=== PATIENT | male | born 1950 | race Hispanic/Latino ===

== ENCOUNTER 2019-04-16 09:41 | Observation (INO) | payer MEDICARE ==
[2019-04-15 13:40] VITALS: BP 127/77
[2019-04-15 13:55] LABS: BASOPHILS % (AUTO) 0.7 % (0.0-5.0); EOSINOPHILS % (AUTO) 2.1 % (0.0-8.0); HEMATOCRIT 46.9 % (42-54); LYMPHOCYTES % (AUTO) 36.7 % (21.0-51.0); MEAN CORPUSCULAR HEMOGLOBIN 30.5 pg (27.0-33.0); MEAN CORPUSCULAR HGB CONC 33.3 g/dL (32.0-36.0); MEAN CORPUSCULAR VOLUME 91.4 fL (79-99); MONOCYTES % (AUTO) 11.7 % (3.0-13.0); NEUTROPHILS % (AUTO) 48.8 % (40.0-77.0); NUCLEATED RED BLOOD CELLS 0.1 % (0.0-0.19); PLATELET COUNT (AUTO) 171 K/uL (130-400); RED BLOOD CELL COUNT(AUTO) 5.13 MIL/uL (4.50-6.20)
[2019-04-15 14:05] LABS: CREATININE 1.7 mg/dL (0.5-1.5); POTASSIUM 4.5 mmol/L (3.5-5.1)
[2019-04-15 14:08] LABS: INR 1.11 (0.85-1.15); PARTIAL THROMBOPLASTIN TIME 30.8 SEC (26.3-35.5); PROTHROMBIN TIME 11.6 SEC (9.6-11.6)
--- NOTE | 2019-04-15 15:33 | NUR ---
reported bun 24 and dispatcher chief coal slurry of 1.7, no new orders for fluids and no new orders for repeat labs.
[~2019-04-16] VITALS: Ht 163.8 cm; Wt 70.0 kg
[2019-04-16] VITALS (11 sets, daily range): BP systolic 115–144; BP diastolic 62–84
[~2019-04-16 09:41] MED LIST: CEFAZOLIN SODIUM 1 GM VIAL IVP ONE; SODIUM CHLORIDE 0.9% 1000ML 1,000 ML IV SCH
[2019-04-16] MEDS ORDERED: LEVO150T11 PO (12:06)
[2019-04-16] MEDS ORDERED: OMEP20CA10 PO (12:06)
[2019-04-16] MEDS ORDERED: ROSU10TA27 PO (12:06)
[2019-04-16] MEDS ORDERED: METO-408 PO (12:06)
[2019-04-16] MEDS ORDERED: ASPI-555 PO (12:06)
[2019-04-16] MEDS ORDERED: LISI-613 PO (12:06)
[2019-04-16] MEDS ORDERED: CHOL200012 PO (12:06)
[2019-04-16] MEDS ORDERED: CEFAZOLIN SODIUM 1 GM VIAL ONE ×2 (13:03→13:05)
[2019-04-16] MEDS ORDERED: BUPIVACAINE/PF 0.25% 30ML VIAL IJ ONE (13:03)
[2019-04-16] MEDS ORDERED: LIDOCAINE HCL 1% MDV 50ML VIAL ONE (13:04)
[2019-04-16] MEDS ORDERED: IOHEXOL-350 50ML VIAL IV ONE (13:28)
[2019-04-16] MEDS ORDERED: MEPERIDINE-PF 25 MG/ML SYG ONE ×2 (13:38→13:56)
[2019-04-16] MEDS ORDERED: MIDAZOLAM HCL 1 MG/ML 2ML VIAL ONE ×2 (13:39→13:57)
[2019-04-16] MEDS ORDERED: ACETAMINOPHEN 325 MG TAB PO PRN ×2 (15:15→18:15)
[2019-04-16] MEDS ORDERED: ACETAMINOPHEN-CODEINE 300/30MG TAB PO PRN ×2 (15:15→18:15)
--- NOTE | 2019-04-16 15:25 | NUR ---
RECEIVED TO ROOM 232 VIA BED ACCOMPANIED BY CAPACITOR REPAIRER STAFF. AAOX3, RESP.'S EVEN AND UNLABORED. DENIES ANY C/O AT THIS TIME. LEFT UPPER CHEST WITH DRSG IN PLACE, D/I; AREA SOFT, NO ECCHYMOSIS, HEMATOMA OR CREPITUS NOTED. LEFT ARM WITH SLING IN PLACE. INSTRUCTED ON LEFT ARM RESTRICTIONS/PRECAUTIONS, VERBALIZED UNDERSTANDING. CALL LIGHT WITHIN REACH. BED LOW, SIDE RAILS UP X3.
[2019-04-16] MEDS: LISINOPRIL 20 MG TABLET PO SCH (20:55)
[2019-04-16] MEDS: ***HM***(Metoprolol Succinate 12.5 MG) PO SCH (21:00)
[2019-04-17 03:57] VITALS: BP 137/62
[2019-04-17] MEDS ORDERED: LEVOTHYROXINE 150 MCG TABLET PO SCH (06:30)
[2019-04-17] MEDS ORDERED: PANTOPRAZOLE SODIUM 40 MG TABLET.DR PO SCH (07:30)
[2019-04-17 07:52] VITALS: BP 115/87
[2019-04-17] MEDS: ***HM***(Metoprolol Succinate 12.5 MG) PO SCH (09:00)
[2019-04-17] MEDS ORDERED: CHOLECALCIFEROL 2000 UNIT PO SCH (09:00)
[2019-04-17] MEDS ORDERED: ASPIRIN 81 MG EC TAB PO SCH (09:00)
[2019-04-17] MEDS: LISINOPRIL 20 MG TABLET PO SCH (09:26)
[2019-04-17 11:58] VITALS: BP 119/68
[2019-04-18] MEDS ORDERED: LEVOTHYROXINE 150 MCG TABLET PO SCH (06:30)
== END 2019-04-17 14:10 | disposition home or self-care (01) ==
LOC: DAH 09:41 → DAHIP 09:42 → 2AH 15:29
PROVIDERS: ADMIT Internal Medicine; ATTEND Internal Medicine
DX: I49.5 Sick sinus syndrome (principal); E11.9 Type 2 diabetes mellitus without complications; I11.0 Hypertensive heart disease with heart failure; I50.22 Chronic systolic (congestive) heart failure; I97.190 Other postprocedural cardiac functional disturbances following cardiac surgery; I47.2 Ventricular tachycardia; I42.9 Cardiomyopathy, unspecified; Z82.49 Family history of ischemic heart disease and other diseases of the circulatory system; Z79.899 Other long term (current) drug therapy; Z79.01 Long term (current) use of anticoagulants
CPT/HCPCS: 33249; 36415; 71045; 80048; 82948; 85025; 85610; 85730; A4606; C1721; C1895; G0378 ×23; J0690 ×2; J2175 ×2; J2250 ×2; J3490 ×2; Q9967; 99156; 99157

== ENCOUNTER 2019-04-24 16:57 | Inpatient (IN) | payer MEDICARE ==
[~2019-04-24] VITALS: Ht 165.1 cm; Wt 66.2 kg
[~2019-04-24 16:57] MED LIST changes: +ASPI-555 PO; -CEFAZOLIN SODIUM 1 GM VIAL IVP ONE; +CHOL200012 PO; +LEVO150T11 PO; +LISI-613 PO; +METO-408 PO; +OMEP20CA10 PO; +ROSU10TA27 PO; -SODIUM CHLORIDE 0.9% 1000ML 1,000 ML IV SCH
[2019-04-24 17:25] LABS: BASOPHILS % (AUTO) 0.8 % (0.0-5.0); EOSINOPHILS % (AUTO) 2.6 % (0.0-8.0); HEMATOCRIT 49.4 % (42-54); LYMPHOCYTES % (AUTO) 38.7 % (21.0-51.0); MEAN CORPUSCULAR HEMOGLOBIN 30.3 pg (27.0-33.0); MEAN CORPUSCULAR HGB CONC 33.3 g/dL (32.0-36.0); MEAN CORPUSCULAR VOLUME 91.1 fL (79-99); MONOCYTES % (AUTO) 13.2 % (3.0-13.0); NEUTROPHILS % (AUTO) 44.7 % (40.0-77.0); NUCLEATED RED BLOOD CELLS 0.1 % (0.0-0.19); PLATELET COUNT (AUTO) 177 K/uL (130-400); RED BLOOD CELL COUNT(AUTO) 5.42 MIL/uL (4.50-6.20); WHITE BLOOD COUNT (AUTO) 6.2 K/uL (4.8-10.8)
[2019-04-24 17:34] LABS: CREATININE 1.5 mg/dL (0.5-1.5)
[2019-04-24 17:39] LABS: ALBUMIN 4.1 g/dL (3.5-5.0); BILIRUBIN,TOTAL 0.7 mg/dL (0.2-1.0); TOTAL PROTEIN, SERUM 8.4 g/dL (6.0-8.3)
[2019-04-24 17:46] LABS: B-TYPE NATRIURETIC PEPTIDE 84 pg/mL (0-100)
[2019-04-24 17:56] LABS: INR 1.02 (0.85-1.15); PARTIAL THROMBOPLASTIN TIME 28.9 SEC (26.3-35.5); PROTHROMBIN TIME 10.7 SEC (9.6-11.6)
[2019-04-24] MEDS ORDERED: NITROGLYCERIN 1GM/1 INCH PACKET TD ONE (19:17)
[2019-04-24] MEDS ORDERED: SODIUM CHLORIDE 0.9% 500ML 500 ML IV ONE (19:19)
[2019-04-24] MEDS ORDERED: IOHEXOL-350 75 ML VIAL IV ONE (19:25)
[2019-04-24] MEDS ORDERED: LACTULOSE 20 GM/30 ML UDCUP PO PRN (20:45)
[2019-04-24] MEDS ORDERED: GLUCAGON 1MG KIT 1 MG ML IM PRN (20:45)
[2019-04-24] MEDS ORDERED: ONDANSETRON HCL 4 MG/2 ML VIAL IV PRN (20:45)
[2019-04-24] MEDS ORDERED: SODIUM CHLORIDE 0.9% 1000ML 1,000 ML IV SCH (20:45)
[2019-04-24] MEDS ORDERED: ACETAMINOPHEN 325 MG TAB PO PRN ×2 (20:45)
[2019-04-24] MEDS ORDERED: NITROGLYCERIN 0.4 MG SL TAB SL PRN (20:45)
[2019-04-24] MEDS ORDERED: DEXTROSE 50%-WATER 50 ML DISP.SYRIN IV PRN (20:45)
[2019-04-24] MEDS: FAMOTIDINE 20MG TAB 20 MG TAB PO SCH (21:00)
[2019-04-24] MEDS: INSULIN HUMULIN R 100 UNIT/ML 3ML SQ SCH (21:00)
[2019-04-24 21:10] LABS: APPEARANCE,URINE Clear (CLEAR); BILIRUBIN,URINE Negative (NEGATIVE); COLOR,URINE Yellow (YELLOW); GLUCOSE, URINE (UA) Negative (NEGATIVE); KETONES,URINE Negative (NEGATIVE); LEUKOCYTE ESTERASE ,URINE Negative (NEGATIVE); NITRATE,URINE Negative (NEGATIVE); OCCULT BLOOD,URINE Negative (NEGATIVE); PROTEIN,URINE Negative (NEGATIVE)
[2019-04-24 21:17] LABS: AMPHET/METH SCREEN,URINE NEGATIVE (NEGATIVE); BARBITURATE SCREEN, URINE NEGATIVE (NEGATIVE); BENZODIAZEPINES SCREEN,URINE POSITIVE (NEGATIVE); CANNABINOID SCREEN,URINE NEGATIVE (NEGATIVE); COCAINE SCREEN,URINE NEGATIVE (NEGATIVE); OPIATE SCREEN,URINE NEGATIVE (NEGATIVE); PHENCYCLIDINE SCREEN,URINE NEGATIVE (NEGATIVE)
[2019-04-24 21:20] LABS: HEMOGLOBIN A1C 7.1 % (4.0-6.0)
--- NOTE | 2019-04-24 22:00 | NUR ---
ADMISSION NOTE ADMIT TO ROOM 404 VIA STRETCHER FROM ER, PATIENT AWAKE ,ALERT, OX3, NO SOB, NO PAIN AT THIS TIME, DRESSING LEFT UPPER CHEST WALL, RIGHT AC 20 GAUGE CATHETER PATENT, START IVF OF NS AT 50 CC/HR ORDERED, DAUGHTER AT BEDSIDE, TEACH PATIENT AND DAUGHTER PLAN OF CARE AND EXPECTED OUTCOME, PATIENT VERBALIZES UNDERSTANDING VIA TEACH BACK
[2019-04-24] MEDS ORDERED: SITA100T12 PO (22:22)
[2019-04-24 22:30] VITALS: BP 123/81
[2019-04-24] MEDS: METOPROLOL TARTRATE 25 MG TAB PO SCH (22:42)
[2019-04-24 23:58] LABS: CREATINE KINASE, TOTAL 92 U/L (21-232); MYOGLOBIN 98 ng/mL (10-92); TROPONIN I < 0.04 ng/mL (0.00-0.06)
[2019-04-25 03:30] VITALS: BP 113/71
[2019-04-25 04:03] LABS: BASOPHILS % (AUTO) 0.7 % (0.0-5.0); EOSINOPHILS % (AUTO) 2.5 % (0.0-8.0); HEMATOCRIT 43.1 % (42-54); LYMPHOCYTES % (AUTO) 37.7 % (21.0-51.0); MEAN CORPUSCULAR HEMOGLOBIN 31.2 pg (27.0-33.0); MEAN CORPUSCULAR HGB CONC 34.2 g/dL (32.0-36.0); MEAN CORPUSCULAR VOLUME 91.1 fL (79-99); MONOCYTES % (AUTO) 12.2 % (3.0-13.0); NEUTROPHILS % (AUTO) 46.9 % (40.0-77.0); NUCLEATED RED BLOOD CELLS 0.1 % (0.0-0.19); PLATELET COUNT (AUTO) 143 K/uL (130-400); RED BLOOD CELL COUNT(AUTO) 4.73 MIL/uL (4.50-6.20); WHITE BLOOD COUNT (AUTO) 5.5 K/uL (4.8-10.8)
[2019-04-25 04:28] LABS: ALANINE AMINOTRANSFERASE 54 U/L (12-78); ALBUMIN 3.4 g/dL (3.5-5.0); ASPARTATE AMINOTRANSFERASE 40 U/L (10-37); BILIRUBIN,TOTAL 0.9 mg/dL (0.2-1.0); CARBON DIOXIDE 24 mmol/L (21-32); CHLORIDE 104 mmol/L (101-111); CHOLESTEROL 82 mg/dL (<200); CREATINE KINASE, TOTAL 110 U/L (21-232); CREATININE 1.4 mg/dL (0.5-1.5); GLOMERULAR FILTR. RATE CALC 54 mL/min (>60); GLUCOSE,RANDOM 85 mg/dL (70-105); HDL CHOLESTEROL 20 mg/dL (29-71); LDL DIRECT 46 mg/dL (0-99); MYOGLOBIN 104 ng/mL (10-92); POTASSIUM 4.5 mmol/L (3.5-5.1); SODIUM SERUM 137 mmol/L (136-145); TOTAL PROTEIN, SERUM 6.9 g/dL (6.0-8.3); TRIGLYCERIDES 186 mg/dL (30-200); TROPONIN I < 0.04 ng/mL (0.00-0.06); UREA NITROGEN, BLOOD 25 mg/dL (7-18)
[2019-04-25] MEDS: INSULIN HUMULIN R 100 UNIT/ML 3ML SQ SCH ×4 (06:06→20:27)
[2019-04-25 07:38] VITALS: BP 113/65
[2019-04-25] MEDS: ENOXAPARIN SODIUM 30 MG/0.3 ML SQ SCH (08:16)
[2019-04-25] MEDS: METOPROLOL TARTRATE 25 MG TAB PO SCH ×2 (08:17→20:27)
[2019-04-25] MEDS: FAMOTIDINE 20MG TAB 20 MG TAB PO SCH ×2 (08:17→20:27)
[2019-04-25] MEDS ORDERED: ASPIRIN 325 MG TABLET PO SCH (09:00)
[2019-04-25 11:14] VITALS: BP 127/84
--- NOTE | 2019-04-25 12:00 | NUR ---
CARDIOLOGY DR. TAY IN TO SEE PATIENT. NEW ORDERS RECEIVED.
[2019-04-25 16:00] VITALS: BP 141/95
[2019-04-25 19:23] VITALS: BP 140/64
[2019-04-25 23:24] VITALS: BP 122/69
[2019-04-26 03:29] VITALS: BP 111/66
[2019-04-26 05:26] LABS: BASOPHILS % (AUTO) 0.7 % (0.0-5.0); EOSINOPHILS % (AUTO) 2.1 % (0.0-8.0); HEMATOCRIT 42.2 % (42-54); LYMPHOCYTES % (AUTO) 41.9 % (21.0-51.0); MEAN CORPUSCULAR HEMOGLOBIN 30.6 pg (27.0-33.0); MEAN CORPUSCULAR HGB CONC 33.8 g/dL (32.0-36.0); MEAN CORPUSCULAR VOLUME 90.4 fL (79-99); MONOCYTES % (AUTO) 13.1 % (3.0-13.0); NEUTROPHILS % (AUTO) 42.2 % (40.0-77.0); NUCLEATED RED BLOOD CELLS 0.2 % (0.0-0.19); PLATELET COUNT (AUTO) 138 K/uL (130-400); RED BLOOD CELL COUNT(AUTO) 4.66 MIL/uL (4.50-6.20); RED CELL DISTRIBUTION WIDTH 14.7 % (11.0-15.5); WHITE BLOOD COUNT (AUTO) 4.7 K/uL (4.8-10.8)
[2019-04-26 05:29] LABS: CREATININE 1.4 mg/dL (0.5-1.5); POTASSIUM 4.5 mmol/L (3.5-5.1)
[2019-04-26] MEDS: INSULIN HUMULIN R 100 UNIT/ML 3ML SQ SCH ×4 (06:01→20:24)
[2019-04-26] MEDS: LEVOTHYROXINE 75 MCG TABLET PO SCH (06:30)
[2019-04-26 07:35] VITALS: BP 132/76
[2019-04-26] MEDS: TOPROL PO SCH ×2 (09:00→21:00)
[2019-04-26] MEDS ORDERED: REGADENOSON 0.4 MG/5 ML PF SYG IVP SCH (09:00)
[2019-04-26] MEDS: **HM** VIT D3 2000 UNITS PO SCH (09:00)
[2019-04-26] MEDS ORDERED: ASPIRIN 81 MG EC TAB PO SCH (09:00)
[2019-04-26] MEDS: FAMOTIDINE 20MG TAB 20 MG TAB PO SCH ×2 (10:47→22:33)
[2019-04-26] MEDS: LINAGLIPTIN 5 MG TABLET PO SCH (10:47)
[2019-04-26] MEDS: LISINOPRIL 20 MG TABLET PO SCH ×2 (10:47→22:34)
[2019-04-26] MEDS: PANTOPRAZOLE SODIUM 40 MG TABLET.DR PO SCH (10:47)
[2019-04-26] MEDS: ENOXAPARIN SODIUM 30 MG/0.3 ML SQ SCH (10:48)
[2019-04-26 11:13] VITALS: BP 131/83
--- NOTE | 2019-04-26 13:45 | NUR ---
DR. ML TAY MD ROUNDING. PATIENTS DAUGHTER IN ROOM AND REQUESTING TO SPEAK TO DR. TAY. DR. TAY ASKED ME IF PATIENT WAS IN ROOM AND INFORMED MD THAT PATIENT WAS CURRENTLY IN [place] PROCEDURE, BUT PATIENTS DAUGHTER IN ROOM AND WANTED INFORMATION FROM PANTOGRAPH WATCHER REGARDING PATIENT STATUS. DR. TAY REPLIED THAT HE WAS NOT THERE TO ASSESS THE FAMILY AND DID NOT SPEAK TO FAMILY.
[2019-04-26] MEDS ORDERED: SODIUM CHLORIDE 0.9% 500ML 500 ML IV SCH (15:49)
[2019-04-26 16:33] VITALS: BP 138/82
--- NOTE | 2019-04-26 16:41 | NUR ---
INITIAL: Met with pt and family this afternoon to discuss dcp. Prior to admission pt was living w dtr. He is independent w ambulation and ADLs. Per pt he does not own any DME or receive services. Pt states that his dtr provides transportation where needed. Pt states he feels safe and comfortable to [place] home at [place]. Will continue to follow and wait for Md recommendations. Addendum: 04/26/19 at 1643 by KORI MOSS CM Amended: Links added.
[2019-04-26 19:34] VITALS: BP 126/75
[2019-04-26] MEDS ORDERED: MAGNESIUM 2GM PREMIX 50ML 50 ML IV PRN (20:15)
[2019-04-26] MEDS: ATORVASTATIN CALCIUM 20 MG TABLET PO SCH (22:34)
[2019-04-26] MEDS: ASPIRIN 81 MG EC TAB PO SCH (22:34)
[2019-04-26 23:28] VITALS: BP 116/70
[2019-04-27 04:00] VITALS: BP 103/65
[2019-04-27 05:52] LABS: BASOPHILS % (AUTO) 1.6 % (0.0-5.0); EOSINOPHILS % (AUTO) 2.4 % (0.0-8.0); HEMATOCRIT 42.9 % (42-54); LYMPHOCYTES % (AUTO) 30.8 % (21.0-51.0); MEAN CORPUSCULAR HEMOGLOBIN 30.9 pg (27.0-33.0); MEAN CORPUSCULAR VOLUME 91.1 fL (79-99); NEUTROPHILS % (AUTO) 53.2 % (40.0-77.0); NUCLEATED RED BLOOD CELLS 0.1 % (0.0-0.19); PLATELET COUNT (AUTO) 130 K/uL (130-400); RED BLOOD CELL COUNT(AUTO) 4.71 MIL/uL (4.50-6.20); RED CELL DISTRIBUTION WIDTH 14.9 % (11.0-15.5); WHITE BLOOD COUNT (AUTO) 5.2 K/uL (4.8-10.8)
[2019-04-27 06:01] LABS: CREATININE 1.4 mg/dL (0.5-1.5)
[2019-04-27] MEDS: LEVOTHYROXINE 150 MCG TABLET PO SCH (06:30)
[2019-04-27] MEDS: INSULIN HUMULIN R 100 UNIT/ML 3ML SQ SCH ×4 (06:42→20:40)
[2019-04-27 08:04] VITALS: BP 98/56
[2019-04-27 08:50] LABS: INR 1.06 (0.85-1.15); PARTIAL THROMBOPLASTIN TIME 30.8 SEC (26.3-35.5); PROTHROMBIN TIME 11.1 SEC (9.6-11.6)
[2019-04-27] MEDS: LISINOPRIL 20 MG TABLET PO SCH ×2 (09:00→19:44)
[2019-04-27] MEDS: TOPROL PO SCH ×2 (09:00→19:45)
[2019-04-27] MEDS: **HM** VIT D3 2000 UNITS PO SCH (09:00)
[2019-04-27] MEDS: PANTOPRAZOLE SODIUM 40 MG TABLET.DR PO SCH (10:45)
[2019-04-27] MEDS: LINAGLIPTIN 5 MG TABLET PO SCH (10:45)
[2019-04-27] MEDS: FAMOTIDINE 20MG TAB 20 MG TAB PO SCH ×2 (10:45→19:42)
[2019-04-27] MEDS: ENOXAPARIN SODIUM 30 MG/0.3 ML SQ SCH (10:46)
[2019-04-27 11:27] VITALS: BP 110/72
[2019-04-27 16:37] VITALS: BP 121/57
[2019-04-27] MEDS: ATORVASTATIN CALCIUM 20 MG TABLET PO SCH (19:42)
[2019-04-27] MEDS: ASPIRIN 81 MG EC TAB PO SCH (19:42)
[2019-04-27 19:56] VITALS: BP 126/75
[2019-04-27] MEDS ORDERED: TEMAZEPAM 15 MG CAPSULE ONE (23:26)
[2019-04-27] MEDS ORDERED: TEMAZEPAM 15 MG CAPSULE PO ONE (23:30)
[2019-04-27] MEDS: LEVOTHYROXINE 75 MCG TABLET PO SCH (23:36)
[2019-04-28] VITALS (11 sets, daily range): BP systolic 124–142; BP diastolic 53–82
[2019-04-28 04:30] LABS: BASOPHILS % (AUTO) 0.9 % (0.0-5.0); EOSINOPHILS % (AUTO) 2.7 % (0.0-8.0); HEMATOCRIT 42.8 % (42-54); LYMPHOCYTES % (AUTO) 36.7 % (21.0-51.0); MEAN CORPUSCULAR HEMOGLOBIN 30.2 pg (27.0-33.0); MEAN CORPUSCULAR HGB CONC 33.4 g/dL (32.0-36.0); MEAN CORPUSCULAR VOLUME 90.4 fL (79-99); MONOCYTES % (AUTO) 13.2 % (3.0-13.0); NEUTROPHILS % (AUTO) 46.5 % (40.0-77.0); NUCLEATED RED BLOOD CELLS 0.1 % (0.0-0.19); PLATELET COUNT (AUTO) 164 K/uL (130-400); RED BLOOD CELL COUNT(AUTO) 4.74 MIL/uL (4.50-6.20); RED CELL DISTRIBUTION WIDTH 14.8 % (11.0-15.5); WHITE BLOOD COUNT (AUTO) 5.3 K/uL (4.8-10.8)
[2019-04-28 04:40] LABS: CREATININE 1.7 mg/dL (0.5-1.5); POTASSIUM 4.1 mmol/L (3.5-5.1)
[2019-04-28] MEDS ORDERED: SODIUM CHLORIDE 0.9% 500ML 500 ML IV SCH (05:00)
[2019-04-28] MEDS: INSULIN HUMULIN R 100 UNIT/ML 3ML SQ SCH ×4 (05:17→20:25)
[2019-04-28] MEDS: FAMOTIDINE 20MG TAB 20 MG TAB PO SCH ×2 (07:44→20:39)
[2019-04-28] MEDS: PANTOPRAZOLE SODIUM 40 MG TABLET.DR PO SCH (07:44)
[2019-04-28] MEDS: **HM** VIT D3 2000 UNITS PO SCH (07:44)
[2019-04-28] MEDS: ENOXAPARIN SODIUM 30 MG/0.3 ML SQ SCH (07:44)
[2019-04-28] MEDS: LINAGLIPTIN 5 MG TABLET PO SCH (07:44)
[2019-04-28] MEDS ORDERED: LIDOCAINE HCL 1% 20 ML VIAL ONE (08:33)
[2019-04-28] MEDS ORDERED: HEPARIN SODIUM 1000UNIT/ML 10ML VIAL ONE (08:33)
[2019-04-28] MEDS ORDERED: IOHEXOL 350 MG/ML 100ML INFUS..BTL IV ONE (08:33)
[2019-04-28] MEDS ORDERED: IOHEXOL-350 50ML VIAL IV ONE (08:34)
[2019-04-28] MEDS: LISINOPRIL 20 MG TABLET PO SCH ×2 (08:45→20:39)
[2019-04-28] MEDS: TOPROL PO SCH ×2 (08:45→21:00)
[2019-04-28] MEDS ORDERED: ADENOSINE 90MG/30ML VIAL IV ONE (09:39)
[2019-04-28] MEDS ORDERED: GLUCAGON 1MG KIT 1 MG ML IM PRN (10:15)
[2019-04-28] MEDS ORDERED: DEXTROSE 50%-WATER 50 ML DISP.SYRIN IV PRN (10:15)
[2019-04-28] MEDS ORDERED: GABA-531 PO (12:51)
[2019-04-28] MEDS ORDERED: ALPRAZOLAM 0.5 MG TABLET PO PRN (13:00)
[2019-04-28] MEDS: RANOLAZINE 500 MG TAB.SR.12H PO SCH (20:38)
[2019-04-28] MEDS: ATORVASTATIN CALCIUM 20 MG TABLET PO SCH (20:38)
[2019-04-28] MEDS: ASPIRIN 81 MG EC TAB PO SCH (20:39)
[2019-04-28] MEDS ORDERED: GABAPENTIN 300 MG CAPSULE PO SCH (21:00)
[2019-04-29 04:00] VITALS: BP 96/56
[2019-04-29 04:33] LABS: HEMATOCRIT 42.9 % (42-54); MEAN CORPUSCULAR HEMOGLOBIN 31.3 pg (27.0-33.0); MEAN CORPUSCULAR HGB CONC 34.5 g/dL (32.0-36.0); MEAN CORPUSCULAR VOLUME 90.9 fL (79-99); NUCLEATED RED BLOOD CELLS 0.1 % (0.0-0.19); PLATELET COUNT (AUTO) 144 K/uL (130-400); RED BLOOD CELL COUNT(AUTO) 4.72 MIL/uL (4.50-6.20); RED CELL DISTRIBUTION WIDTH 14.9 % (11.0-15.5); WHITE BLOOD COUNT (AUTO) 5.6 K/uL (4.8-10.8)
[2019-04-29 04:42] LABS: CREATININE 1.5 mg/dL (0.5-1.5); POTASSIUM 4.2 mmol/L (3.5-5.1)
[2019-04-29] MEDS: INSULIN HUMULIN R 100 UNIT/ML 3ML SQ SCH (06:06)
[2019-04-29] MEDS: LEVOTHYROXINE 150 MCG TABLET PO SCH (06:06)
[2019-04-29 07:44] VITALS: BP 121/66
[2019-04-29] MEDS: RANOLAZINE 500 MG TAB.SR.12H PO SCH (08:18)
[2019-04-29] MEDS: FAMOTIDINE 20MG TAB 20 MG TAB PO SCH (08:18)
[2019-04-29] MEDS: LISINOPRIL 20 MG TABLET PO SCH (08:18)
[2019-04-29] MEDS: PANTOPRAZOLE SODIUM 40 MG TABLET.DR PO SCH (08:18)
[2019-04-29] MEDS: ENOXAPARIN SODIUM 30 MG/0.3 ML SQ SCH (08:19)
[2019-04-29] MEDS: LINAGLIPTIN 5 MG TABLET PO SCH (08:19)
[2019-04-29] MEDS: **HM** VIT D3 2000 UNITS PO SCH (08:20)
[2019-04-29] MEDS: TOPROL PO SCH (08:20)
[2019-04-29 11:20] VITALS: BP 132/76
[2019-04-29] MEDS ORDERED: RANO500T2 PO (11:24)
--- NOTE | 2019-04-29 18:32 | NUR ---
Discharge instructions provided in the room with pt and daughter at side. Emphasis on dx, s/s to monitor for, post angiography activity instructions/ femoral puncture site care. Follow up appts made with Dr. Jhaveri and Dr. Rodriguez. New rx for Ranexa given to pt. Discussed purpose, route, frequency of medication as well as side effects and adverse effects. All questions addressed. PIV removed, tip intact. Dressed with sterile 2x2 and band aid after hemostasis. Pt wheeled to front [facility] by [facility] staff for transport home via private car. Pt in stable condition at time of discharge .
== END 2019-04-29 14:41 | disposition home or self-care (01) | DRG 287 ==
LOC: EDH 16:57 → EDHIP 20:45 → 4AH 21:23
PROVIDERS: ADMIT Internal Medicine; ATTEND Internal Medicine
PROC: 4A023N7 Measurement of Cardiac Sampling and Pressure, Left Heart, Percutaneous Approach (ICD-10-PCS; principal; 2019-04-28)
PROC: B2111ZZ Fluoroscopy of Multiple Coronary Arteries using Low Osmolar Contrast (ICD-10-PCS; 2019-04-28)
PROC: B2181ZZ Fluoroscopy of Left Internal Mammary Bypass Graft using Low Osmolar Contrast (ICD-10-PCS; 2019-04-28)
PROC: 4B02XSZ Measurement of Cardiac Pacemaker, External Approach (ICD-10-PCS; 2019-04-28)
DX: I25.110 Atherosclerotic heart disease of native coronary artery with unstable angina pectoris (principal); I13.0 Hypertensive heart and chronic kidney disease with heart failure and stage 1 through stage 4 chronic kidney disease, or unspecified chronic kidney disease; I50.42 Chronic combined systolic (congestive) and diastolic (congestive) heart failure; N18.3 Chronic kidney disease, stage 3 (moderate); E11.22 Type 2 diabetes mellitus with diabetic chronic kidney disease; I42.9 Cardiomyopathy, unspecified; I49.5 Sick sinus syndrome; E03.9 Hypothyroidism, unspecified; E78.5 Hyperlipidemia, unspecified; E83.42 Hypomagnesemia; J44.9 Chronic obstructive pulmonary disease, unspecified; I25.2 Old myocardial infarction; Z95.0 Presence of cardiac pacemaker; Z95.1 Presence of aortocoronary bypass graft
CPT/HCPCS: 36415; 71045; 71275; 78452; 80048; 80053; 80061; 80305; 81003; 82550; 82948; 83036; 83735; 83874; 83880; 84484; 85025; 85027; 85610; 85651; 85730; 86140; 93005; 93017; 93459; 93571; 96374; 99291; A9500; C1760; C1887; C1894; G0378; J0153; J1644; J1650; J2785; J3475; J7040; Q9967

== ENCOUNTER → 2020-05-05 | Outpatient (CLI) | payer MEDICARE ==
[~2020-05-05] MED LIST changes: -ASPI-555 PO; +ASPI-556 PO; +GABA-531 PO; -OMEP20CA10 PO; +OMEP20CA12 PO; +RANO500T2 PO; -ROSU10TA27 PO; +ROSU10TA28 PO; +SITA100T12 PO
== END | disposition home or self-care (01) ==
LOC: RAH 12:58
PROVIDERS: ATTEND Family Medicine
DX: G31.1 Senile degeneration of brain, not elsewhere classified (principal); R42 Dizziness and giddiness; I99.8 Other disorder of circulatory system
CPT/HCPCS: 70551

== ENCOUNTER → 2020-06-17 | Outpatient (CLI) | payer MEDICARE | END | disposition home or self-care (01) | LOC: RAH 13:56 | PROVIDERS: ATTEND Internal Medicine Cardiovascular Disease | DX: I51.7 Cardiomegaly (principal) | CPT/HCPCS: 71046; 78582; A9540; A9558 ==

== ENCOUNTER → 2020-07-01 | Outpatient (CLI) | payer MEDICARE | END | disposition home or self-care (01) | LOC: RAH 08:53 | PROVIDERS: ATTEND Family Medicine | DX: M47.816 Spondylosis without myelopathy or radiculopathy, lumbar region (principal); M48.061 Spinal stenosis, lumbar region without neurogenic claudication; N20.0 Calculus of kidney | CPT/HCPCS: 72148 ==

== ENCOUNTER 2020-11-23 12:26 | Emergency (ER) | payer MEDICARE ==
[~2020-11-23 12:26] MED LIST changes: -LISI-613 PO; +LISI20TA24 PO
[2020-11-23 14:09] LABS: BASOPHILS % (AUTO) 0.4 % (0.0-5.0); EOSINOPHILS % (AUTO) 1.4 % (0.0-8.0); HEMATOCRIT 39.3 % (42-54); LYMPHOCYTES % (AUTO) 26.7 % (21.0-51.0); MEAN CORPUSCULAR HEMOGLOBIN 31.3 pg (27.0-33.0); MEAN CORPUSCULAR HGB CONC 34.4 g/dL (32.0-36.0); MEAN CORPUSCULAR VOLUME 91.2 fL (79-99); MONOCYTES % (AUTO) 11.5 % (3.0-13.0); NEUTROPHILS % (AUTO) 59.6 % (40.0-77.0); PLATELET COUNT (AUTO) 145 K/uL (130-400); RED BLOOD CELL COUNT(AUTO) 4.31 MIL/uL (4.50-6.20); RED CELL DISTRIBUTION WIDTH 14.1 % (11.0-15.5); WHITE BLOOD COUNT (AUTO) 5.7 K/uL (4.8-10.8)
[2020-11-23 14:18] LABS: APPEARANCE,URINE Clear (CLEAR); BILIRUBIN,URINE Negative (NEGATIVE); COLOR,URINE Yellow (YELLOW); GLUCOSE, URINE (UA) Negative (NEGATIVE); KETONES,URINE Negative (NEGATIVE); LEUKOCYTE ESTERASE ,URINE Small (NEGATIVE); NITRATE,URINE Negative (NEGATIVE); OCCULT BLOOD,URINE Negative (NEGATIVE); PH,URINE 5.5 (5.0-8.0); PROTEIN,URINE Negative (NEGATIVE)
[2020-11-23 14:21] LABS: INR 1.61 (0.85-1.15); POTASSIUM 4.7 mmol/L (3.5-5.1); PROTHROMBIN TIME 16.5 SEC (9.6-11.6)
[2020-11-23 14:22] LABS: PARTIAL THROMBOPLASTIN TIME 37.9 SEC (26.3-35.5)
[2020-11-23 14:25] LABS: ALBUMIN 3.8 g/dL (3.5-5.0); BILIRUBIN,TOTAL 1.2 mg/dL (0.2-1.0); TOTAL PROTEIN, SERUM 7.7 g/dL (6.0-8.3)
[2020-11-23 14:29] LABS: BACTERIA,URINE Few /HPF (None Seen); RBC,URINE None Seen /HPF (0-1); SQUAMOUS EPITHELIAL CELL,UR 0-2 /HPF (0-2)
== END 2020-11-23 16:13 | disposition home or self-care (01) ==
LOC: EDH 12:26
DX: G25.81 Restless legs syndrome (principal); M62.81 Muscle weakness (generalized); I48.91 Unspecified atrial fibrillation; I25.10 Atherosclerotic heart disease of native coronary artery without angina pectoris; I10 Essential (primary) hypertension; E78.5 Hyperlipidemia, unspecified; E03.9 Hypothyroidism, unspecified; I25.2 Old myocardial infarction; Z88.8 Allergy status to other drugs, medicaments and biological substances; Z95.0 Presence of cardiac pacemaker
CPT/HCPCS: 36415; 71045; 80053; 81001; 82550; 84484; 85025; 85610; 85730; 87077; 87088; 87186; 93005

== ENCOUNTER 2020-11-27 15:23 | Emergency (ER) | payer MEDICARE ==
[~2020-11-27 15:23] MED LIST changes: +LISI-613 PO; -LISI20TA24 PO
== END 2020-11-27 15:41 | disposition left against medical advice (07) ==
LOC: EDH 15:23
DX: R07.89 Other chest pain (principal); I25.10 Atherosclerotic heart disease of native coronary artery without angina pectoris; E11.9 Type 2 diabetes mellitus without complications; E78.5 Hyperlipidemia, unspecified; I10 Essential (primary) hypertension; I25.2 Old myocardial infarction; Z53.21 Procedure and treatment not carried out due to patient leaving prior to being seen by health care provider